=== PATIENT | female | born 1935 | race Caucasian/White ===

== ENCOUNTER 2017-02-17 13:03 | Emergency (ER) | payer OTHER, BC ==
[~2017-02-17] VITALS: Ht 149.9 cm; Wt 58.0 kg
[2017-02-17 13:15] VITALS: Ht 149.9 cm; Wt 58.0 kg
[2017-02-17] MEDS ORDERED: LSN40 PO (13:52)
[2017-02-17] MEDS ORDERED: ASPI-232 PO (13:52)
[2017-02-17 14:37] LABS: BASO % 0.1 %; BASO ABS # 0.01 K/uL (0-0.2); COMPLETE YES; EOS % 0.6 %; IG% 0.6 %; LYMPH % 12.8 %; LYMPH ABS # 1.48 K/uL (1.2-3.4); MEAN CELL VOLUME 89.9 fL (80-100); MEAN CORPUSCULAR HEMOGLOBIN 30.8 pg (25-34); MEAN CORPUSCULAR HGB CONC 34.3 g/dl (32-36); MEAN PLATELET VOLUME 9.6 fL (7.4-10.4); MONO % 5.3 %; NEUT % 80.6 %; PLATELET COUNT 259 K/uL (130-400); RED BLOOD COUNT 5.23 M/uL (4.2-5.4); WHITE BLOOD COUNT 11.54 K/uL (4.8-10.8)
[2017-02-17 14:56] LABS: BUN/CREATININE RATIO 11.3 (10-20); CALCIUM 9.7 mg/dl (8.5-10.1); CREATININE 1.2 mg/dl (0.60-1.20); POTASSIUM 3.7 mmol/L (3.5-5.1)
[2017-02-17 14:59] LABS: ALB/GLOB RATIO 1.1 (0.9-2)
[2017-02-17] MEDS ORDERED: SODIUM CHLORIDE 0.9% 1000ML 1,000 ML IV ONE (15:30)
--- NOTE | 2017-02-17 15:40 | EMERGENCY ROOM VISIT NOTE ---
History Report prepared by Adiel: Cesar Diggs Under the Supervision of: Dr. Ronaldo Walker M.D. First contact with patient: 15:08 Chief Complaint: VOMITING Stated Complaint: THROWING UP,DIARRHEA,WEAKNESS,FLUSH Nursing Triage Summary: Pt's daughter's state patient and her drove here from 3 hours away. Pt c/o ears itching her, started vomiting and having diarrhea. Denies abdominal pain. Denies itching ears in triage. History of Present Illness The patient is an 81 year old female who presents to the Emergency Room with complaints of intermittent vomiting and diarrhea for the past three days. The patient states that she additionally feels very weak, and she has been vomiting up yellow and brown. She denies any hematochezia, hematemesis, and any chest pain. She states that she had a small breakfast this morning, and she ate fine yesterday. Additionally, she states that she had some cashew nuts the other day , and she thought that this could have been an issue. The patient states that she normally has high blood pressure, and she is intermittently incontinent. Also, she states that her groin, hands, and ears were itchy, though it has resolved. The patient's daughter states that the patient has been intermittently on antibiotics for a while. Source of History: patient Onset: a few days ago Position: other (global) Quality: other (vomiting and diarrhea) Timing: intermittent Associated Symptoms: + vomiting, + diarrhea, No hematochezia Review of Systems All systems have been listed, reviewed, and are negative other than those previously mentioned. Please see Additional Medical History Sheet. Past Medical & Surgical Medical Problems: (1) HTN (hypertension) Family History Cancer Heart disease Hypertension Social History Smoking Status: Former Smoker Alcohol Use: occasionally Housing Status: lives alone Occupation Status: retired Current/Historical Medications Scheduled Aspirin (Aspir-81), 2 TAB PO DAILY Lisinopril (Lisinopril), 1 TAB PO DAILY Ondasetron Odt (Zofran Odt), 4 MG SL Q4 Allergies Coded Allergies: Statins (Unverified Allergy, Unknown, leg cramps, 02/17/17) Physical Exam Vital Signs Date Time Temp Pulse Resp B/P (MAP) Pulse Ox O2 Delivery O2 Flow Rate FiO2 02/17/17 16:32 124/80 02/17/17 16:13 91 22 95 02/17/17 16:01 115/80 02/17/17 15:43 83 15 96 02/17/17 15:38 114/66 02/17/17 15:30 90 21 96 02/17/17 15:00 90 22 02/17/17 13:33 95 02/17/17 13:15 36.5 104 20 78/54 95 Room Air Physical Exam GENERAL: Patient awake, alert, oriented x 3. Patient follows commands. Patient does not appear toxic. Patient is adequately hydrated and well- nourished. SKIN: No erythema, pallor, cyanosis or rash HEENT: Normal head, pupils equal, reactive to light and accommodation. Ears normal. Oral cavity and posterior pharynx appear normal. Neck: Without adenopathy, no neck vein distention. LUNGS: Faint wheezes in all huerta. No rales, no rhonchi. HEART: No murmurs. No gallops. No rubs ABDOMEN: Bowel activity is increased. No masses, no rebound, no hepatomegaly or splenomegaly. EXTREMITIES: No signs of trauma. No pedal or pretibial edema. No calf or thigh tenderness. NEUROLOGIC: Cranial nerves II-XII within normal limits. No gross motor sensory function deficits. Medical Decision & Procedures Laboratory Results 02/17/17 14:15 Red Blood Count 5.23, Mean Corpuscular Volume 89.9, Mean Corpuscular Hemoglobin 30.8, Mean Corpuscular Hemoglobin Concent 34.3, Mean Platelet Volume 9.6, Neutrophils (%) (Auto) 80.6, Lymphocytes (%) (Auto) 12.8, Monocytes (%) (Auto) 5.3, Eosinophils (%) (Auto) 0.6, Basophils (%) (Auto) 0.1, Neutrophils # (Auto) 9.30, Lymphocytes # (Auto) 1.48, Monocytes # (Auto) 0.61, Eosinophils # (Auto) 0.07, Basophils # (Auto) 0.01 02/17/17 14:15 Test 02/17/17 14:15 White Blood Count 11.54 K/uL (4.8-10.8) Red Blood Count 5.23 M/uL (4.2-5.4) Hemoglobin 16.1 g/dL (12.0-16.0) Hematocrit 47.0 % (37-47) Mean Corpuscular Volume 89.9 fL (80-100) Mean Corpuscular Hemoglobin 30.8 pg (25-34) Mean Corpuscular Hemoglobin Concent 34.3 g/dl (32-36) Platelet Count 259 K/uL (130-400) Mean Platelet Volume 9.6 fL (7.4-10.4) Neutrophils (%) (Auto) 80.6 % Lymphocytes (%) (Auto) 12.8 % Monocytes (%) (Auto) 5.3 % Eosinophils (%) (Auto) 0.6 % Basophils (%) (Auto) 0.1 % Neutrophils # (Auto) 9.30 K/uL (1.4-6.5) Lymphocytes # (Auto) 1.48 K/uL (1.2-3.4) Monocytes # (Auto) 0.61 K/uL (0.11-0.59) Eosinophils # (Auto) 0.07 K/uL (0-0.5) Basophils # (Auto) 0.01 K/uL (0-0.2) RDW Standard Deviation 42.7 fL (36.4-46.3) RDW Coefficient of Variation 13.0 % (11.5-14.5) Immature Granulocyte % (Auto) 0.6 % Immature Granulocyte # (Auto) 0.07 K/uL (0.00-0.02) Anion Gap 10.0 mmol/L (3-11) Est Creatinine Clear Calc Drug Dose 28.5 ml/min Estimated GFR () 49.1 Estimated GFR (Non- 42.4 BUN/Creatinine Ratio 11.3 (10-20) Calcium Level 9.7 mg/dl (8.5-10.1) Total Bilirubin 0.6 mg/dl (0.2-1) Aspartate Amino Transf (AST/SGOT) 14 U/L (15-37) Alanine Aminotransferase (ALT/SGPT) 22 U/L (12-78) Alkaline Phosphatase 86 U/L (45-117) Total Protein 7.2 gm/dl (6.4-8.2) Albumin 3.8 gm/dl (3.4-5.0) Globulin 3.4 gm/dl (2.5-4.0) Albumin/Globulin Ratio 1.1 (0.9-2) Date/Time Source Procedure Growth Status 7/14/17 15:40 Stool C.difficile Toxin B Gene (PCR) - Final No C. difficile toxin B gene detected Complete Laboratory results as stated above per my review. Medications Administered Medications (Trade) Dose Ordered Sig/Holden Route Start Time Stop Time Status Last Admin Dose Admin Sodium Chloride 1,000 ml @ 1,000 mls/hr Q1H ONCE IV 02/17/17 15:30 02/17/17 16:29 DC 02/17/17 15:38 1,000 MLS/HR ECG Indication: vomiting Rate (beats per minute): 90 Rhythm: sinus rhythm Findings: no acute ischemic change, no ectopy ED Course 1528: Past medical records reviewed. The patient was evaluated in room B12. A complete history and physical examination was performed. 1530: Sodium Chloride 1000 ml @ 1000 mls/hr IV 1713: I revaluated the patient, and she was going to be getting the rest of her IV fluids, and she is doing well. Once they are done she will be ready to discharge. Medical Decision Nurses notes reviewed. Medical history sheet reviewed. Differential diagnosis includes but is not limited to: acute gastroenteritis, bacterial vs viral gastroenteritis, dehydration, and metabolic disorder. Blood pressure Screening: Patient was found to have normal blood pressure on screening and does not require follow up. Medication Reconciliation: I attest that I have personally reviewed the patient' s current medication list. The patient is here with nausea vomiting and diarrhea. The patient was recently on antibiotics and there remains a concern for C. difficile. Multiple labs were obtained. Please see above. The patient was given IV fluids. The patient's initial blood pressure was low but improved markedly with the IV fluids and oral rehydration. C. difficile was negative. White count was minimally elevated. The patient felt significantly better after rehydration. The patient will be discharged with a prescription for Zofran. She is to continue pushing fluids. Stool cultures are pending. Impression Primary Impression: Acute gastroenteritis Additional Impression: Dehydration Scribe Attestation The scribe's documentation has been prepared under my direction and personally reviewed by me in its entirety. I confirm that the note above accurately reflects all work, treatment, procedures, and medical decision making performed by me. Departure Information Dispostion Home / Self-Care Prescriptions Ondasetron Odt (ZOFRAN ODT) 4 Mg Tab 4 MG SL Q4 for Nausea, #10 TAB Prov: Ronaldo Walker M.D. 02/17/17 Referrals No Doctor, Assigned (PCP) Forms HOME CARE DOCUMENTATION FORM, IMPORTANT VISIT INFORMATION Patient Instructions My [facility] Additional Instructions 1 Zofran every 4 hours as needed for nausea. Drink at least 3-4 quarts of liquid over the next 24 hours. Follow-up with your family physician return to the closest emergency department if you are unable to hold down liquids, feeling weaker or lightheaded. Problem Qualifiers
[2017-02-17] MEDS ORDERED: ONDA4TAB10 SL (17:20)
[2017-02-17 18:10] VITALS: BP 152/84; PULSE 85; TEMP 36.5; O2SAT 95
== END 2017-02-17 18:10 | disposition home or self-care (01) ==
LOC: C.EDB 13:05
DX: K52.9 Noninfective gastroenteritis and colitis, unspecified (principal); E86.0 Dehydration; I10 Essential (primary) hypertension; Z80.9 Family history of malignant neoplasm, unspecified; Z82.49 Family history of ischemic heart disease and other diseases of the circulatory system; Z87.891 Personal history of nicotine dependence; Z79.82 Long term (current) use of aspirin; Z79.899 Other long term (current) drug therapy